=== PATIENT | male | born 1945 | race African-American/Black ===

== ENCOUNTER 2019-08-17 18:55 | Emergency (ER) | payer OTHER ==
[~2019-08-17] VITALS: Ht 190.5 cm; Wt 108.0 kg
[~2019-08-17 18:55] MED LIST: ASPIRIN325; ASPIRIN325 PO; CIALIS20 MG PO; COLACE 100 MG100 MG PO; COZAAR 50 MG TA50 M2 PO; DOXYCYCLINE 10100 MG PO; FLOMAX PO; IBUPROFEN 200200 M1; LISINOPRIL40 MG PO; MILK OF MA2400 MG/10 PO; MUCINEX TA600 MG/TA2; NEXIUM40 MG PO; NORCO 5-325 TA1 EACH PO; TAMSULOSIN HCL0.4 MG PO; TYLENOL325 MG PO; ZPAK PO
[2019-08-17] MEDS ORDERED: PEPCID20 MG PO (20:49)
[2019-08-17] MEDS ORDERED: PREDNISONE 20 M20 M1 PO (20:49)
[2019-08-17] MEDS ORDERED: BENADRYL25 MG PO (20:49)
[2019-08-17 21:19] VITALS: BP 151/71
== END 2019-08-17 21:30 | disposition home or self-care (01) ==
LOC: ER 18:55
DX: L50.9 Urticaria, unspecified (principal); I10 Essential (primary) hypertension; K21.9 Gastro-esophageal reflux disease without esophagitis; F17.210 Nicotine dependence, cigarettes, uncomplicated